=== PATIENT | female | born 1995 | race Two or more races ===

== ENCOUNTER 2023-12-20 15:51 | Emergency (ER) | payer SELFPAY ==
[~2023-12-20] VITALS: Ht 157.5 cm; Wt 108.2 kg
[2023-12-20] MEDS ORDERED: IBUP-1456 PO (19:26)
[2023-12-20] MEDS ORDERED: ZOFR4T PO (19:26)
[2023-12-20] MEDS ORDERED: ONDANSETRON ODT 4 MG TAB PO ONE (19:30)
[2023-12-20] MEDS ORDERED: KETOROLAC TROMETH 60MG/2ML VIAL IM ONE (19:30)
[2023-12-20 19:34] VITALS: BP 104/88; PULSE 90; RESP 16; TEMP 98.1; O2SAT 99
== END 2023-12-20 19:37 | disposition home or self-care (01) ==
LOC: ER 15:51
DX: G44.209 Tension-type headache, unspecified, not intractable (principal); F15.90 Other stimulant use, unspecified, uncomplicated; Z98.890 Other specified postprocedural states
CPT/HCPCS: 70450; 81025; 96372; 99285; J1885; Q0162

== ENCOUNTER 2023-12-21 18:13 | Emergency (ER) | payer SELFPAY ==
[~2023-12-21] VITALS: Ht 157.5 cm; Wt 108.4 kg
[~2023-12-21 18:13] MED LIST: IBUP-1456 PO; ZOFR4T PO
[2023-12-21 18:30] VITALS: BP 119/67; PULSE 72; RESP 18; TEMP 97.8; O2SAT 99
[2023-12-21] MEDS ORDERED: ONDANSETRON ODT 4 MG TAB PO ONE (23:00)
[2023-12-21] MEDS ORDERED: KETOROLAC TROMETH 60MG/2ML VIAL IM ONE (23:00)
== END 2023-12-21 23:33 | disposition home or self-care (01) ==
LOC: ER 18:13
DX: G44.209 Tension-type headache, unspecified, not intractable (principal); F15.90 Other stimulant use, unspecified, uncomplicated; Z98.890 Other specified postprocedural states
CPT/HCPCS: 96372; 99283; J1885; Q0162